=== PATIENT | male | born 1940 | race Caucasian/White ===

== ENCOUNTER 2018-12-04 15:26 | Emergency (ER) | payer MEDICARE ==
[~2018-12-04] VITALS: Ht 188 cm; Wt 2.6 kg
[2018-12-04 15:39] VITALS: Ht 188 cm; Wt 2.6 kg
[2018-12-04] MEDS ORDERED: CYMBALTA60 MG PO (16:07)
[2018-12-04] MEDS ORDERED: PLAVIX75 MG PO (16:07)
[2018-12-04] MEDS ORDERED: LISINOPRIL-HCT1 EAC7 PO (16:07)
[2018-12-04] MEDS ORDERED: BETAPACE160 MG PO (16:08)
[2018-12-04] MEDS ORDERED: COREG12.5 MG PO (16:08)
[2018-12-04] MEDS ORDERED: VALTREX500 MG PO (16:08)
[2018-12-04] MEDS ORDERED: MOBIC7.5 MG PO (16:09)
[2018-12-04 16:18] LABS: BASOPHILS 0.3 % (0-2); EOSINOPHILS 2.6 % (0-7); HEMATOCRIT 46.9 % (42.0-54.0); HEMOGLOBIN 16.4 g/dL (13.5-17.5); IMMATURE GRANULOCYTES 0.2 % (0-5); LYMPHOCYTES 25.6 % (15-50); MCH 30.9 pg (26.0-34.0); MCV 88.5 fL (80.0-100.0); MEAN PLATELET VOLUME 10.8 fL (7.4-10.4); MONOCYTES 9.4 % (2-11); NEUTROPHILS 61.9 % (40-80); PLATELET COUNT 260 10x3/uL (130-400); RDW 13.8 % (11.5-14.5); WBC 9.5 10x3/uL (4.8-10.8)
[2018-12-04 16:26] LABS: APTT 32.1 SECONDS (22.8-39.4); INR 1.08 (0.85-1.17); PROTIME 13.5 SECONDS (11.6-15.0)
[2018-12-04 16:33] LABS: ALKALINE PHOSPHATASE 99 U/L (46-116); ALT (SGPT) 19 U/L (10-68); BILIRUBIN - TOTAL 0.77 mg/dL (0.2-1.3); CALC OSMOLALITY 284 mosm/kg (275-300); CALCIUM 9.6 mg/dL (8.5-10.1); CARBON DIOXIDE 26.7 mmol/L (21.0-32.0); CHLORIDE - SERUM 102 mmol/L (98-107); CREATININE - SERUM 0.8 mg/dL (0.6-1.3); GLUCOSE 94 mg/dL (74-106); POTASSIUM - SERUM 4.1 mmol/L (3.5-5.1); PROTEIN - SERUM 7.4 g/dL (6.4-8.2); SODIUM 143 mmol/L (136-145); UREA NITROGEN 12 mg/dL (7-18); eGFR NON AFRICAN AMERICAN > 90 mL/min (90-120)
[2018-12-04 16:45] LABS: CKMB 1.7 U/L (0.0-3.6); CREATINE KINASE 132 UL (21-232); MAGNESIUM - SERUM 1.8 mg/dL (1.8-2.4); THYROID STIMULATING HORMONE 2.36 uIU/mL (0.36-3.74)
[2018-12-04 16:47] LABS: TROPONIN-I < 0.017 ng/mL (0.000-0.060)
[2018-12-04] MEDS ORDERED: HUMULIN N100 U/ML SC (17:58)
[2018-12-04] MEDS ORDERED: HUMULIN R100 U/ML SC (17:58)
--- NOTE | 2018-12-04 18:31 | MORECARE ---
CASE MANAGEMENT DISCHARGE SUMMARY PATIENT: DANISHA DOMINGUEZ UNIT: [id number] ADM DATE: AGE: 78 : 42 SEX: M ROOM/BED: AUTHOR: BORIS CONTRERAS PHYSICIAN: REFERRING PHYSICIAN: SHEY US MD DATE OF SERVICE: 12/04/18 Discharge Plan Patient Name: DANISHA DOMINGUEZ Facility: [facility]:[place] : 1940 Planned Disposition: Anticipated Discharge Date: Discharge Date: Expected LOS: 0 Initial Reviewer: [email or web address] Initial Review Date: 12/04/2018 Generated: 12/04/18 7:31 pm Patient Name: DANISHA DOMINGUEZ Page 73090 at 1831 All edits/amendments must be made on the electronic document DICTATION DATE: 12/04/181829 JOURNAL BOX INSPECTOR: SMITA 12/04/181829 RPT#: [id number] DC DATE: STATUS: REG ER [facility] [address] [place] [address] END OF REPORT
--- NOTE | 2018-12-04 18:38 | MORECARE ---
CASE MANAGEMENT DISCHARGE SUMMARY PATIENT: DANISHA DOMINGUEZ UNIT: [id number] ADM DATE: AGE: 78 : 42 SEX: M ROOM/BED: AUTHOR: BORIS CONTRERAS PHYSICIAN: REFERRING PHYSICIAN: SHEY US MD DATE OF SERVICE: 12/04/18 Discharge Plan Patient Name: DANISHA DOMINGUEZ Facility: [facility]:[place] : 1940 Planned Disposition: Anticipated Discharge Date: Discharge Date: Expected LOS: 0 Initial Reviewer: [email or web address] Initial Review Date: 12/04/2018 Generated: 12/04/18 7:38 pm Comments DCP- Discharge Planning Updated by [email or web address]: Becky Salguero on 12/04/18 5:[address] 1805-CM contacted [facility] request ER , for transfer Neurology coverage. Provided required information for patient, ER MD spoke to ER [email or web address]. Patient is accepted for Neurology coverage. Becky Salguero RN CM Last DP export: 12/04/18 5:31 p Patient Name: DANISHA DOMINGUEZ Page 92466 at 1838 All edits/amendments must be made on the electronic document DICTATION DATE: 12/04/181837 L[employer] M[employer] OPERATOR: SMITA 12/04/181837 RPT#: [id number] DC DATE: STATUS: REG [facility] [address] [place] [address] END OF REPORT
[2018-12-04 21:30] VITALS: BP 129/76
== END 2018-12-04 21:30 | disposition other institution (70) ==
LOC: D.ER 15:26
PROVIDERS: Family Medicine
DX: R68.89 Other general symptoms and signs (principal); G81.94 Hemiplegia, unspecified affecting left nondominant side